=== PATIENT | female | born 1945 | race Caucasian/White ===

== ENCOUNTER 2016-08-20 14:18 | Emergency (ER) | payer MEDICARE, OTHER ==
[~2016-08-20] VITALS: Ht 165.1 cm; Wt 80.0 kg
[~2016-08-20 14:18] MED LIST: ACET-2047 PO; ASCO500C7 PO; ASPI-664 PO; ATOR80TA75 PO; BACL10TA PO; CALC1TAB79 PO; CARV3.1260 PO; CHOL100062 PO; CLOP75TA27 PO; DEXL60CA2 PO; DOCU-159 PO; ESZO3TAB12 PO; FAMO20TA18 PO; FURO20TA3 PO; GABA300C16 PO; HYDR4TAB PO; LACT20SO2 PO; LIDO5CRE18 TP; LORA-186 PO; LORA1TAB PO; LOSA50TA6 PO; LUBI24CA7 PO; MONT10TA24 PO; MORP60TA37 PO; MULTI PO; NIT4 SL; PSEU30TA38 PO
[2016-08-20] MEDS ORDERED: SOD CHLORIDE 0.9% 500 ML IV STA (14:30)
[2016-08-20 14:32] VITALS: Ht 165.1 cm; Wt 80.0 kg
--- NOTE | 2016-08-20 14:44 | RADRPT ---
PROCEDURE: XR Chest. CLINICAL INDICATION: Altered mental status TECHNIQUE: Chest AP portable COMPARISON: 11/27/2015 FINDINGS: The mediastinal structures are unremarkable. There is calcification of the thoracic aorta (consiste nt with atherosclerosis). The heart is normal in size and configuration. The pulmonary vascularity is normal. The lung cherry are unremarkable. No consolidation is identified. The pleural spaces are unremarkable. There are senescent changes of the axial skeleton. IMPRESSION: Calcification of the thoracic aorta (consistent with atherosclerosis). No evidence for active cardiopulmonary disease. RPTAT: HGDB .Miguel Duque MD, Date Time Electronically viewed and signed by .Miguel Duque MD, on 08/20/2016 14:44 .B/
--- NOTE | 2016-08-20 14:59 | RADRPT ---
PROCEDURE: CT Brain without contrast. CLINICAL INDICATION: Altered mental status. TECHNIQUE: A CT of the brain without contrast was performed utilizing axial sections from the skul l base through the vertex. The patient was scanned without intravenous contrast enhancement. Sagitta l and coronal reformatted images were obtained using the data from the axial images. Total exam DLP is 720.23 mGy-cm. CTDIvol is 42.30 mGy. One or more of the following dose reduction techniques we re used: Automated exposure control, adjustment of the mA and/or kV according to patient size, use o f iterative reconstruction technique. COMPARISON: 08/17/2016. FINDINGS: There is normal huber-white matter differentiation. The ventricles and cisterns are mildly enlarged consistent with atrophy. There is mild periventricu lar decreased attenuation consistent with microangiopathic ischemic change.. There is no intracranial hemorrhage or space-occupying lesion. There is no skull fracture or lytic lesion. There is hyperostosis frontalis interna, a normal varia nt.. IMPRESSION: 1. Hyperostosis frontalis interna, a normal variant. 2. No intracranial hemorrhage. 3. Mild atrophy and microangiopathic ischemic change. 4. Otherwise normal noncontrast CT scan of the brain. 5. No change from 08/17/2016. RPTAT: QQ .Adilson Witt MD, Date Time Electronically viewed and signed by .Adilson Witt MD, on 08/20/2016 14:59 .R/
[2016-08-20 15:02] LABS: ADD SCAN DIFF NO
[2016-08-20 15:04] LABS: BASOPHILS % 0.2 % (0.0-2.0); EOSINOPHILS # 0.1 10^3/ul (0.0-0.5); EOSINOPHILS % 0.5 % (0.0-7.0); HEMATOCRIT 45.8 % (37.0-47.0); HEMOGLOBIN 15.8 g/dl (12.0-16.0); LYMPHOCYTES % 17.5 % (15.0-51.0); MEAN CORPUSCULAR HEMOGLOBIN 32.1 pg (29.0-33.0); MEAN CORPUSCULAR HGB CONC 34.5 g/dl (32.0-37.0); MEAN CORPUSCULAR VOLUME 93.1 fl (82.0-101.0); MEAN PLATELET VOLUME 9.6 fl (7.4-10.4); MONOCYTE # 1.3 10^3/ul (0.3-0.9); MONOCYTES % 7.4 % (0.0-11.0); NEUTROPHIL # 12.8 10^3/ul (1.6-7.5); PLATELET COUNT 375 10^3/UL (140-415); RED BLOOD COUNT 4.92 10^6/ul (4.20-5.40); RED CELL DISTRIBUTION WIDTH 12.9 % (11.5-14.5); WHITE BLOOD COUNT 17.3 10^3/ul (4.8-10.8)
[2016-08-20 15:18] LABS: ALBUMIN 4.1 g/dl (3.3-4.9); CHLORIDE 97 mmol/L (97-110)
[2016-08-20 15:19] LABS: INR 0.94; POTASSIUM 3.6 mmol/L (3.5-5.1); PROTIME 12.6 Sec (12.2-14.2); SODIUM 136 mmol/L (135-144)
[2016-08-20 15:20] LABS: PARTIAL THROMBOPLASTIN TIME 26.1 Sec (25.0-35.0)
[2016-08-20 15:21] LABS: ALANINE AMINOTRANSFERASE 46 IU/L (13-69); ALKALINE PHOSPHATASE 106 IU/L (42-121); ANION GAP 18 (8-16); ASPARTATE AMINO TRANSFERASE 35 IU/L (15-46); BILIRUBIN,INDIRECT 0.8 mg/dl (0-1.1); BILIRUBIN,TOTAL 0.8 mg/dl (0.2-1.3); BLOOD UREA NITROGEN 18 mg/dl (7-20); CARBON DIOXIDE 25 mmol/L (21-31); CREATININE 0.61 mg/dl (0.44-1.00); GLUCOSE 119 mg/dl (70-220); TOTAL PROTEIN 7.5 g/dl (6.1-8.1)
[2016-08-20 15:22] LABS: CALCIUM 9.6 mg/dl (8.4-10.2)
[2016-08-20 15:23] LABS: ACETAMINOPHEN < 10.0 ug/ml (10.0-30.0); ETHANOL < 10.0 mg/dl; SALICYLATE < 1.0 mg/dl (5.0-30.0)
[2016-08-20 15:35] LABS: TROPONIN-I < 0.012 ng/ml (0.00-0.12)
--- NOTE | 2016-08-20 15:39 | ERA ---
ER Documentation Chief Complaint Date/Time DATE: 08/20/16 TIME: 15:35 Chief Complaint aloc x 1 hour HPI This is a 70-year-old female history of fibromyalgia, chronic pain syndrome who presents to the emergency room with altered mental status. It appears from the assisted living facility the patient became altered. Upon arrival the patient is a difficult historian. She seems inconsistent with her level of altered mental status. She is following simple commands and able to verbalize her name. I had a conversation with the patient's recent managing physician as the patient was discharged approximately 24 hours ago from this hospital. He states that her presentation today is very consistent with her presentation in the past. She had a thorough workup including MRI of the brain, CT of the brain , EEG all of which has been unremarkable. He is concerned that there may be underlying psychiatric issues with this patient. Remainder of HPI is limited. ROS Limited historian Medications Home Meds Reported Medications Lubiprostone* (Amitiza*) 24 Mcg Capsule, 24 MCG PO BID, #60 CAP 08/11/16 Carvedilol* (Carvedilol*) 3.125 Mg Tablet, 3.125 MG PO BID, #60 TAB 08/11/16 Famotidine* (Famotidine*) 20 Mg Tablet, 20 MG PO BID, #60 TAB 08/11/16 Docusate Sodium* (Docusate Sodium*) 100 Mg Capsule, 100 MG PO BID, #60 CAP 08/11/16 Lidocaine (Lidocaine) 5 Gm Cream..g., 5 GM TP DAILY 08/11/16 Eszopiclone (Lunesta) 3 Mg Tablet, 3 MG PO HS Y for INSOMNIA, TAB 08/11/16 Losartan Potassium* (Losartan Potassium*) 50 Mg Tablet, 50 MG PO DAILY, TAB 08/11/16 Dexlansoprazole (Dexilant) 60 Mg Cap., 60 MG PO DAILY, #30 CAP 08/11/16 Furosemide* (Furosemide*) 20 Mg Tablet, 20 MG PO QAM, #60 TAB 08/11/16 Lactulose* (Lactulose*) 20 Gm/30 Ml Solution, 20 GM PO DAILY Y for CONSTIPATION , ML 08/11/16 Acetaminophen* (Acetaminophen*) 650 Mg Tablet, 650 MG PO BID Y for PAIN AND OR ELEVATED TEMP, #30 TAB 08/11/16 Morphine Sulfate* (Ms Contin*) 60 Mg Tablet.sa, 60 MG PO Q12, TAB.SA 08/11/16 Gabapentin* (Gabapentin*) 300 Mg Capsule, 300 MG PO BID, #60 CAP 08/11/16 Hydromorphone Hcl* (Hydromorphone Hcl*) 4 Mg Tablet, 4 MG PO Q4H WHILE AWAKE Y for PAIN, TAB 08/11/16 Nitroglycerin* (Nitrostat*) 0.4 Mg Tab.subl, 0.4 MG SL Q5MIN Y for CHEST PAIN, BOTTLE 11/27/15 Montelukast Sodium* (Montelukast Sodium*) 10 Mg Tablet, 10 MG PO QHS, #30 TAB 11/27/15 Pseudoephedrine Hcl* (Pseudoephedrine Hcl*) 30 Mg Tablet, 30 MG PO Q8 Y for CONGESTION, TAB 11/27/15 Multivitamins* (Theragran*) 1 Tab Tab, 1 TAB PO DAILY, TAB 11/27/15 Loratadine* (Claritin*) 10 Mg Tablet, 10 MG PO DAILY, TAB 11/27/15 Cholecalciferol* (Vitamin D3*) 1,000 Unit Tablet, 1000 UNIT PO DAILY, TAB 11/27/15 Calcium Carbonate/Vitamin D3 (Oysco 500+D Tablet) 1 Each Tablet, 1 EACH PO DAILY , TAB 11/27/15 Ascorbic Acid* (Vitamin C*) 500 Mg Capsule.sa, 500 MG PO DAILY, CAP 11/27/15 Baclofen* (Baclofen*) 10 Mg Tablet, 10 MG PO Q4 Y for PRN, TAB 11/27/15 Clopidogrel Bisulfate (Clopidogrel) 75 Mg Tablet, 75 MG PO DAILY, #30 TAB 11/27/15 Lorazepam* (Lorazepam*) 1 Mg Tablet, 1 MG PO Q6 Y for ANXIETY, #60 TAB 11/27/15 Aspirin (Low Dose Aspirin) 81 Mg Tablet.dr, 81 MG PO DAILY, #30 TAB 11/27/15 Atorvastatin* (Atorvastatin*) 80 Mg Tablet, 80 MG PO QHS, #30 TAB 11/27/15 Allergies Allergies: Coded Allergies: gabapentin (Verified Allergy, Unknown, 08/20/16) prochlorperazine (Verified Allergy, Unknown, 08/20/16) PMhx/Soc History of Surgery: Yes (stent placement ) Anesthesia Reaction: No Hx Neurological Disorder: Yes (anxiety) Hx Respiratory Disorders: Yes (COPD) Hx Cardiac Disorders: Yes (STEMI, HTN) Hx Psychiatric Problems: No Hx Miscellaneous Medical Probl: Yes (spinal stenosis, UTI, fibromyalgia) Hx Alcohol Use: No Hx Substance Use: No Hx Tobacco Use: No Smoking Status: Never smoker FmHx Family History: No diabetes Physical Exam Vitals Vital Signs Date Time Temp Pulse Resp B/P Pulse Ox O2 Delivery O2 Flow Rate FiO2 08/20/16 16:00 73 22 160/66 99 Room Air 08/20/16 14:34 82 24 169/87 95 Room Air 08/20/16 14:32 97.8 83 20 169/87 97 Physical Exam General: Patient intermittently opens her eyes to verbal commands and painful stimuli however this appears to be inconsistent and somewhat behavioral, moving all extremities Head: Normocephalic, atraumatic. Eyes: Pupils equally reactive, EOM intact ENT: Moist mucous membranes Neck: Supple, no lymphadenopathy Respiratory: Lungs clear bilaterally, no distress Cardiovascular: RRR, no murmurs, rubs, or gallops Abdominal: Soft, non-tender, non-distended, no peritoneal signs : Deferred MSK: No edema, no unilateral swelling, 4/5 strength but inconsistent and behavioral Neurologic: Difficult historian, following simple commands, inconsistent sensorium that appears to be behavioral Skin: No rash Psych: Normal mood Result Diagram: 08/20/16 1430 08/20/16 1430 Results 24 hrs Laboratory Tests Test 08/20/16 14:30 08/20/16 16:10 White Blood Count 17.310^3/ul Red Blood Count 4.9210^6/ul Hemoglobin 15.8g/dl Hematocrit 45.8% Mean Corpuscular Volume 93.1fl Mean Corpuscular Hemoglobin 32.1pg Mean Corpuscular Hemoglobin Concent 34.5g/dl Red Cell Distribution Width 12.9% Platelet Count 02615^3/UL Mean Platelet Volume 9.6fl Neutrophils % 74.0% Lymphocytes % 17.5% Monocytes % 7.4% Eosinophils % 0.5% Basophils % 0.2% Nucleated Red Blood Cells % 0.0/100WBC Neutrophils # 12.810^3/ul Lymphocytes # 3.010^3/ul Monocytes # 1.310^3/ul Eosinophils # 0.110^3/ul Basophils # 0.010^3/ul Nucleated Red Blood Cells # 0.010^3/ul Prothrombin Time 12.6Sec Prothrombin Time Ratio 1.0 INR International Normalized Ratio 0.94 Activated Partial Thromboplast Time 26.1Sec Sodium Level 136mmol/L Potassium Level 3.6mmol/L Chloride Level 97mmol/L Carbon Dioxide Level 25mmol/L Anion Gap 18 Blood Urea Nitrogen 18mg/dl Creatinine 0.61mg/dl Glucose Level 119mg/dl Calcium Level 9.6mg/dl Total Bilirubin 0.8mg/dl Direct Bilirubin 0.00mg/dl Indirect Bilirubin 0.8mg/dl Aspartate Amino Transf (AST/SGOT) 35IU/L Alanine Aminotransferase (ALT/SGPT) 46IU/L Alkaline Phosphatase 106IU/L Troponin I < 0.012ng/ml Total Protein 7.5g/dl Albumin 4.1g/dl Globulin 3.40g/dl Albumin/Globulin Ratio 1.20 Salicylates Level < 1.0mg/dl Acetaminophen Level < 10.0ug/ml Ethyl Alcohol Level < 10.0mg/dl Urine Color YELLOW Urine Clarity SLIGHTLY CLOUDY Urine pH 6.0 Urine Specific [place] 1.020 Urine Ketones NEGATIVE Urine Nitrite NEGATIVE Urine Bilirubin NEGATIVE Urine Urobilinogen 0.2 E.U./dL Urine Leukocyte Esterase NEGATIVE Urine Microscopic RBC 0-2/HPF Urine Microscopic WBC 2-5/HPF Urine Squamous Epithelial Cells FEW Urine Bacteria MANY Urine Hemoglobin TRACE Urine Glucose NEGATIVE% Urine Total Protein TRACE Urine Opiates Screen POSITIVE Urine Barbiturates NEGATIVE Urine Amphetamines Screen NEGATIVE Urine Benzodiazepines Screen NEGATIVE Urine Cocaine Screen NEGATIVE Urine Cannabinoids NEGATIVE Current Medications Medications (Trade) Dose Ordered Sig/Talya Route PRN Reason Start Time Stop Time Status Last Admin Dose Admin Sodium Chloride 500 ml @ 500 mls/hr Q1H STAT IV 08/20/16 14:30 08/20/16 15:29 DC 08/20/16 15:05 Ceftriaxone Sodium (Rocephin) 50 ml @ 100 mls/hr ONCE ONCE IVPB 08/20/16 16:30 08/20/16 16:59 DC 08/20/16 16:47 Procedures/MDM EKG, MONITORS, & DIAGNOSTIC IMAGING: EKG: I reviewed and interpreted a 12-lead EKG. Rhythm: Normal sinus rhythm Ectopy: None Intervals: No abnormalities ST segments: No elevations or depressions T waves: No contiguous inversions Chest x-ray: I reviewed and interpreted a 1 view of the chest Mediastinum: No enlargement Cardiac silhouette: No cardiomegaly Airspace: Clear lung cherry bilaterally without evidence of pneumothorax Bones: No evidence of fracture CT brain: No acute intracranial process per radiology LAB INTERPRETATION: Leukocytosis of 17 but no left shift, urinary tract infection. MEDICAL DECISION MAKING: The patient presents with altered mental status. Broad differential exists given her age. However it appears the patient had similar presentation and was just discharged 24 hours ago with similar workup that included MRI of the brain , EEG and multiple CT scans. Dr. Jeter, the patient's managing provider was concerned that this is more likely related to underlying psychiatric illness but the patient refused to talk to telemetry medicine psychiatrist during recent hospitalization. He feels that the patient may be best served at a geropsychiatric facility such as [facility]. Dr. Jeter can also manage this patient there. The patient will undergo medical screening examination, laboratory testing and diagnostic imaging to rule out alternative process such as stroke, intracranial hemorrhage, acute coronary syndrome, urinary tract infection among others. Consider polypharmacy and prolonged narcotic abuse however the patient has not been on narcotics for [address] Jeter. The patient's presentation does seem strongly behavioral as her sensorium is inconsistent. ER COURSE: The patient has a white count of 17 with urinary tract infection. After talking to Dr. Jeter states the patient is currently on Keflex. The patient' s white count does not have a left shift, unclear significance. The patient continues to have conversations with herself and intermittently with medical staff but continues to be non-cooperative. Most the time the patient is resting and sleeping. I discussed the white count with Dr. Jeter. He states that he can still care for the patient medically on the geropsychiatric floor [facility]. He states that he wishes the patient to be transferred to this facility as the patient needs concomitant medical and psychiatric treatment. Given that the patient's primary care and managing physician wishes to have the patient transferred to a geropsychiatric facility I believe that this is the most beneficial placement for this patient. My current facility does not have inpatient psychiatric care and the benefits of transfer outweigh the risks at this time. I kept the patient and/or family informed of laboratory and diagnostic imaging results throughout the emergency room course. DISPOSITION PLAN: Transfer to [facility] for Brian- psychiatric treatment CONSULTATION: Accepting care team and consultations: I discussed the current laboratory data, diagnostic imaging and emergency care provided. Admitting team: Dr. Jeter Admitting team indication: Insurance directed Departure Diagnosis: Primary Impression: Altered level of consciousness Additional Impressions: Urinary tract infection Qualified Code: N30.00 - Acute cystitis without hematuria Leukocytosis Qualified Code: D72.829 - Leukocytosis, unspecified type Condition: Stable DOLORES LAWRENCE MD August 20, 2016 15:39
[2016-08-20 16:20] LABS: ADD UMIC YES; URINE BILIRUBIN (Dip) NEGATIVE (NEGATIVE); URINE BLOOD (Dip) TRACE (NEGATIVE); URINE COLOR YELLOW (YELLOW); URINE GLUCOSE (Dip) NEGATIVE (NEGATIVE); URINE KETONES (Dip) NEGATIVE (NEGATIVE); URINE LEUKOCYTE ESTERASE (Dip) NEGATIVE (NEGATIVE); URINE NITRITE (Dip) NEGATIVE (NEGATIVE); URINE TOTAL PROTEIN (Dip) TRACE (NEGATIVE); URINE UROBILINOGEN (Dip) 0.2 E.U./dL (0.1-1.0)
[2016-08-20] MEDS ORDERED: CEFTRIAXONE 1 GM/50 ML (PMX) 50 ML IVPB ONE (16:30)
[2016-08-20 16:40] LABS: BACTERIA,URINE MANY; SQUAMOUS EPITHELIAL CELL,UR FEW; URINE RBCS 0-2 /HPF (0)
[2016-08-20 17:08] LABS: BARBITURATES NEGATIVE (NEGATIVE); BENZODIAZEPINES NEGATIVE (NEGATIVE); CANNABINOIDS NEGATIVE (NEGATIVE); COCAINE NEGATIVE (NEGATIVE); OPIATES POSITIVE (NEGATIVE)
[2016-08-20 18:50] VITALS: BP 161/70; PULSE 69; RESP 20; TEMP 98.2
== END 2016-08-20 19:09 | disposition short-term general hospital (02) ==
LOC: E/R 14:18
DX: R40.4 Transient alteration of awareness (principal); R40.2212 Coma scale, best verbal response, none, at arrival to emergency department; N30.00 Acute cystitis without hematuria; D72.829 Elevated white blood cell count, unspecified; I10 Essential (primary) hypertension; J44.9 Chronic obstructive pulmonary disease, unspecified; R40.2142 Coma scale, eyes open, spontaneous, at arrival to emergency department; R40.2352 Coma scale, best motor response, localizes pain, at arrival to emergency department; Z79.82 Long term (current) use of aspirin; Z98.61 Coronary angioplasty status; Z79.01 Long term (current) use of anticoagulants
CPT/HCPCS: 36415; 70450; 71010; 80053; 80306; 80307; 81001; 84484; 85025; 85610; 85730; 87086; 93005; 96374; 99285; A4310; J0696; J7040; P9612; 81003

== ENCOUNTER 2018-05-25 18:41 | Emergency (ER) | payer MEDICARE, OTHER ==
[~2018-05-25] VITALS: Ht 165.1 cm; Wt 80.0 kg
[~2018-05-25 18:41] MED LIST changes: -ASPI-664 PO; +ASPI81TA52 PO; +ATOR-2 PO; -ATOR80TA75 PO; -ESZO3TAB12 PO; -LIDO5CRE18 TP; +LIDO5CRE24 TP; +LOSA50TA14 PO; -LOSA50TA6 PO; +LUN3 PO; -NIT4 SL; +NITR0.4T39 SL
[2018-05-25 18:46] VITALS: Ht 165.1 cm; Wt 80.0 kg
[2018-05-25] MEDS ORDERED: MECLIZINE 12.5 MG TAB PO ONE (19:30)
--- NOTE | 2018-05-25 19:50 | ERD ---
ER Documentation Chief Complaint Chief Complaint PT BIBA 147 first med for dizziness n/v x 8 days HPI This is a 72-year-old female who is here for dizziness. The patient says she has a history of neuropathy does not ambulate much. She said that she is become dizzy today but has been off and on over the past week. Today is worse. She says that she feels lightheaded when she turns her head it does induce some motion feeling where she feels like her head is falling to the right. No fall. No focal neurological complaints of numbness weakness speech change difficulty swallowing or visual change. The patient does admit to a history of anemia. No headache ROS All systems reviewed and are negative except as per history of present illness. Medications Home Meds Active Scripts Meclizine Hcl* (Antivert*) 12.5 Mg Tab, 25 MG PO Q6H PRN for DIZZINESS, #20 TAB Prov:KENDRA BHAKTA DO 05/25/18 Reported Medications Lubiprostone* (Amitiza*) 24 Mcg Capsule, 24 MCG PO BID, #60 CAP 08/11/16 Carvedilol* (Carvedilol*) 3.125 Mg Tablet, 3.125 MG PO BID, #60 TAB 08/11/16 Famotidine* (Famotidine*) 20 Mg Tablet, 20 MG PO BID, #60 TAB 08/11/16 Docusate Sodium* (Docusate Sodium*) 100 Mg Capsule, 100 MG PO BID, #60 CAP 08/11/16 Lidocaine (Lidocaine) 5 Gm Cream..g., 5 GM TP DAILY 08/11/16 Eszopiclone (Lunesta) 3 Mg Tablet, 3 MG PO HS PRN for INSOMNIA, TAB 08/11/16 Losartan Potassium* (Losartan Potassium*) 50 Mg Tablet, 50 MG PO DAILY, TAB 08/11/16 Dexlansoprazole (Dexilant) 60 Mg Cap., 60 MG PO DAILY, #30 CAP 08/11/16 Furosemide* (Furosemide*) 20 Mg Tablet, 20 MG PO QAM, #60 TAB 08/11/16 Lactulose* (Lactulose*) 20 Gm/30 Ml Solution, 20 GM PO DAILY PRN for CONSTI PATION, ML 08/11/16 Acetaminophen* (Acetaminophen*) 650 Mg Tablet, 650 MG PO BID PRN for PAIN AND OR ELEVATED TEMP, #30 TAB 08/11/16 Morphine Sulfate* (Ms Contin*) 60 Mg Tablet.sa, 60 MG PO Q12, TAB.SA 08/11/16 Gabapentin* (Gabapentin*) 300 Mg Capsule, 300 MG PO BID, #60 CAP 08/11/16 Hydromorphone Hcl* (Hydromorphone Hcl*) 4 Mg Tablet, 4 MG PO Q4H WHILE AWAKE PRN for PAIN, TAB 08/11/16 Nitroglycerin* (Nitrostat*) 0.4 Mg Tab.subl, 0.4 MG SL Q5MIN PRN for CHEST PAIN, BOTTLE 11/27/15 Montelukast Sodium* (Montelukast Sodium*) 10 Mg Tablet, 10 MG PO QHS, #30 TAB 11/27/15 Pseudoephedrine Hcl* (Pseudoephedrine Hcl*) 30 Mg Tablet, 30 MG PO Q8 PRN for CONGESTION, TAB 11/27/15 Multivitamins* (Theragran*) 1 Tab Tab, 1 TAB PO DAILY, TAB 11/27/15 Loratadine* (Claritin*) 10 Mg Tablet, 10 MG PO DAILY, TAB 11/27/15 Cholecalciferol* (Vitamin D3*) 1,000 Unit Tablet, 1000 UNIT PO DAILY, TAB 11/27/15 Calcium Carbonate/Vitamin D3 (Oysco 500+D Tablet) 1 Each Tablet, 1 EACH PO DAILY , TAB 11/27/15 Ascorbic Acid* (Vitamin C*) 500 Mg Capsule.sa, 500 MG PO DAILY, CAP 11/27/15 Baclofen* (Baclofen*) 10 Mg Tablet, 10 MG PO Q4 PRN for PRN, TAB 11/27/15 Clopidogrel Bisulfate (Clopidogrel) 75 Mg Tablet, 75 MG PO DAILY, #30 TAB 11/27/15 Lorazepam* (Lorazepam*) 1 Mg Tablet, 1 MG PO Q6 PRN for ANXIETY, #60 TAB 11/27/15 Aspirin (Low Dose Aspirin) 81 Mg Tablet.dr, 81 MG PO DAILY, #30 TAB 11/27/15 Atorvastatin* (Atorvastatin*) 80 Mg Tablet, 80 MG PO QHS, #30 TAB 11/27/15 Allergies Allergies: Coded Allergies: gabapentin (Verified Allergy, Unknown, 08/20/16) prochlorperazine (Verified Allergy, Unknown, 08/20/16) PMhx/Soc History of Surgery: Yes (stent placement ) Anesthesia Reaction: No Hx Neurological Disorder: Yes (anxiety) Hx Respiratory Disorders: Yes (COPD) Hx Cardiac Disorders: Yes (STEMI, HTN) Hx Psychiatric Problems: No Hx Miscellaneous Medical Probl: Yes (spinal stenosis, UTI, fibromyalgia) Hx Alcohol Use: No Hx Substance Use: No Hx Tobacco Use: No Smoking Status: Never smoker FmHx Family History: No coronary disease Physical Exam Vitals Vital Signs Date Temp Pulse Resp B/P (MAP) Pulse Ox O2 O2 Flow FiO2 Time Delivery Rate 05/25/18 65 21 121/49 98 Room Air 19:35 (73) 05/25/18 99.0 66 16 142/64 96 18:46 (90) Physical Exam Const: Well-developed, well-nourished Head: Atraumatic, normocephalic Eyes: Pale conjunctiva, PERRLA, EOMI, normal sclera, no nystagmus] ENT: Normal External Ears, Nose and Mouth, moist mucus membranes. Neck: Full range of motion. No meningismus, no lymphadenopathy. Resp: Clear to auscultation bilaterally, no wheezing, rhonchi, rales Cardio: Regular rate and rhythm, no murmurs, S1 S2 present Abd: Soft, non tender x 4, non distended. Normal bowel sounds, no guard ing or rebound, no pulsitile abdominal masses or bruits Skin: Extremely pale, pale conjunctivae have a no petechiae or rashes, no ecchymosis , no maculopapular rash Back: No midline or flank tenderness Ext: No cyanosis, or edema, FROM x 4, normal inspection, neurovascularly intact x 4 Neur: Awake and alert, STR 5/5 x 4, sensation intact x 4, no focal findings, cerebellum intact, movement of head will induce a bit of vertigo. Psych: Normal Mood and Affect Result Diagram: 05/25/18191105/25/181911 Results 24 hrs Laboratory Tests Test 05/25/18 19:12 White Blood Count 6.3 10^3/ul Red Blood Count 3.45 10^6/ul Hemoglobin 11.6 g/dl Hematocrit 34.3 % Mean Corpuscular Volume 99.4 fl Mean Corpuscular Hemoglobin 33.6 pg Mean Corpuscular Hemoglobin Concent 33.8 g/dl Red Cell Distribution Width 12.4 % Platelet Count 199 10^3/UL Mean Platelet Volume 10.4 fl Immature Granulocytes % 0.200 % Neutrophils % 44.8 % Lymphocytes % 39.0 % Monocytes % 9.0 % Eosinophils % 6.2 % Basophils % 0.8 % Nucleated Red Blood Cells % 0.0 /100WBC Immature Granulocytes # 0.010 10^3/ul Neutrophils # 2.8 10^3/ul Lymphocytes # 2.5 10^3/ul Monocytes # 0.6 10^3/ul Eosinophils # 0.4 10^3/ul Basophils # 0.1 10^3/ul Nucleated Red Blood Cells # 0.0 10^3/ul Prothrombin Time 13.7 Sec Prothrombin Time Ratio 1.1 INR International Normalized Ratio 1.04 Activated Partial Thromboplast Time 28.0 Sec Sodium Level 136 mmol/L Potassium Level 4.6 mmol/L Chloride Level 100 mmol/L Carbon Dioxide Level 29 mmol/L Anion Gap 7 Blood Urea Nitrogen 16 mg/dl Creatinine 0.77 mg/dl Est Glomerular Filtrat Rate mL/min mL/min Glucose Level 109 mg/dl Calcium Level 9.3 mg/dl Total Bilirubin 0.0 mg/dl Direct Bilirubin 0.00 mg/dl Indirect Bilirubin 0.0 mg/dl Aspartate Amino Transf (AST/SGOT) 27 IU/L Alanine Aminotransferase (ALT/SGPT) 22 IU/L Alkaline Phosphatase 90 IU/L Troponin I < 0.012 ng/ml Total Protein 6.5 g/dl Albumin 3.7 g/dl Globulin 2.80 g/dl Albumin/Globulin Ratio 1.32 Current Medications Medications Dose Sig/Talya Start Time Status Last (Trade) Ordered Route PRN Stop Time Admin Dose Reason Admin Meclizine 25 mg ONCE ONCE 05/25/18 DC 05/25/18 HCl PO 19:30 19:23 (Antivert) 05/25/18 19:31 1 mg ONCE STAT 05/25/18 DC Hydromorphone IV 21:48 HCl 05/25/18 21:49 (Dilaudid) Ondansetron 4 mg ONCE STAT 05/25/18 DC HCl (Zofran IV 21:48 Inj) 05/25/18 21:49 Procedures/MDM EKG: Rate/Rhythm: Normal sinus rhythm heart rate 68, inverted T waves in the inferior leads and V5, V4 V6 QRS, ST, QT: NORMAL [place], QRS, QT] Impression: AbNORMAL EKG Ordering MD: KENDRA BHAKTA DO Location: E/R Room/Bed: PROCEDURE: CT Brain without contrast. CLINICAL INDICATION: Dizziness TECHNIQUE: A CT of the brain was performed on a multidetector CT scanner utilizing axial imaging from the skull base through the vertex without IV contrast. Multiplanar reformatted images were made. Images were reviewed on a PACS workstation. The CTDIvol is 38 mGy and the DLP is 634 mGycm. DICOM images are available. One or more of the following dose reduction techniques were utilized: 1.) Automated exposure control 2.) Adjustment of the mA +/- kV according to patient's size 3.) Use of iterative reconstruction technique. COMPARISON: Head CT August 20, 2016 FINDINGS: There is mild to moderate age appropriate diffuse cerebral volume loss with sulcal and ventricular dilatation. No discrete extra-axial fluid collection or masses present. Ventricles are in the midline and of normal configuration. No intra-axial masses or regions of abnormal attenuation are visualized. There is no intracranial hemorrhage. There is preservation of normal huber-white differentiation. There is no skull fracture. No scalp hematoma is identified. IMPRESSION: Mild age-appropriate atrophy. No intracranial hemorrhage or skull fracture. .Lenny Cruz MD, MD Date Time Electronically viewed and signed by .Lenny Cruz MD, MD on 05/25/2018 20:00 .A/ CC: KENDRA BHAKTA DO [id number] MR #: [id number] DOS: 05/25/18 190 Ordering MD: KENDRA BHAKTA DO Location: E/R Room/Bed: PROCEDURE: XR chest. CLINICAL INDICATION: Upper gastrointestinal bleed TECHNIQUE: A single portable view of the chest was obtained. COMPARISON: 08/20/2016 FINDINGS: Heart size is normal. Aorta is mild tortuous and atherosclerotic. There is no pneumothorax or pleural effusion. Right lung is clear. There is an ill-defined small lateral left lower lung opacity measuring 1.5 cm. Cholecystectomy clips are seen in the right upper quadrant of the abdomen. IMPRESSION: 1. Small ill-defined opacity in lateral left lower lung, indeterminate. Recommend short term follow-up radiograph imaging to document resolution. If finding persists, consider CT for further evaluation. 2. Aortic atherosclerosis. RPTAT:HAJM Physician Collin Date Time Electronically viewed and signed by Physician Collin on 05/25/2018 19:38 RM/ CC: KENDRA BHAKTA DO [id number] The patient was given Antivert and she is feeling better no more spinning. I feel her symptoms are consistent with a peripheral vertigo. CT scan of the b rain shows no acute process. The patient has chronic pain from falling back fracture will give her some Dilaudid for pain and sent her home Patient feels much better at this time, and vital signs are normal, symptoms have improved. I did give strict instructions to return to the ED if symptoms continue or worsen, patient will otherwise follow-up with primary care physician. Patient understood instructions and agreed to plan. Disclaimer: Inadvertent spelling and grammatical errors are likely due to EHR/dictation software use and do not reflect on the overall quality of patient care. Also, please note that the electronic time recorded on this note does not necessarily reflect the actual time of the patient encounter. Departure Diagnosis: Primary Impression: Vertigo Condition: Stable KENDRA BHAKTA DO May 25, 2018 19:50
[2018-05-25] MEDS ORDERED: ONDANSETRON 4 MG INJ IV STA (21:48)
[2018-05-25] MEDS ORDERED: HYDROmorphONE 1 MG/ML SYG IV STA (21:48)
[2018-05-25] MEDS ORDERED: MECL12.574 PO (21:49)
[2018-05-25 23:12] VITALS: BP 120/52; PULSE 65; RESP 15
== END 2018-05-25 23:21 | disposition home or self-care (01) ==
LOC: E/R 18:41
DX: R42 Dizziness and giddiness (principal); R40.2142 Coma scale, eyes open, spontaneous, at arrival to emergency department; R40.2362 Coma scale, best motor response, obeys commands, at arrival to emergency department; R40.2252 Coma scale, best verbal response, oriented, at arrival to emergency department; I10 Essential (primary) hypertension; J44.9 Chronic obstructive pulmonary disease, unspecified; Z79.01 Long term (current) use of anticoagulants; Z79.82 Long term (current) use of aspirin; Z98.61 Coronary angioplasty status
CPT/HCPCS: 36415; 70450; 71045; 80053; 84484; 85025; 85610; 85730; 86850; 86900; 86901; 93005; 96374; 96375; 99285; J1170; J2405